=== PATIENT | female | born 1990 | race Caucasian/White ===

== ENCOUNTER 2017-07-20 14:41 | Inpatient (IN) | payer BC ==
[2017-07-21] MEDS ORDERED: ceFAZolin IN SWFI 2 GM/20 ML SYRINGE IVP ONE (10:17)
[2017-07-21] MEDS ORDERED: CITRIC ACID-SODIUM CITRATE 15 ML CUP PO ONE (10:17)
[2017-07-21 10:24] VITALS: BMI 28.8
[2017-07-21] MEDS ORDERED: LACTATED RINGERS 1,000 ML IV SCH (11:08)
[2017-07-21] MEDS ORDERED: OXYTOCIN 10 UNIT/ML 1 ML VIAL ONE (11:18)
[2017-07-21] MEDS ORDERED: ONDANSETRON 4 MG/2 ML VIAL ONE (11:18)
[2017-07-21] MEDS ORDERED: MORPHINE SULFATE (PF) 0.3 MG/0.3 ML SYR ONE (11:18)
[2017-07-21] MEDS ORDERED: KETOROLAC 30 MG/ML 1 ML VIAL ONE (11:18)
[2017-07-21] MEDS ORDERED: PHENYLEPHRINE-0.9% NACL SYG 1 MG/10 ML SYRINGE ONE (11:18)
[2017-07-21] MEDS ORDERED: NALBUPHINE 10 MG/ML AMPUL ONE (11:18)
--- NOTE | 2017-07-21 11:23 | P.HPOB ---
History of Present Illness H&P Date: 07/21/17 Chief Complaint: Here for repeat low transverse section This is a 27-year-old white female 2 para 1001 EDC 520 07/17/17 at 40 and one sevenths weeks' gestation. Patient had a previous low transverse section for arrest of descent in the second stage. Her plan was to await spontaneous labor and consider if this occurred before her stated due date. However, her cervix at this point is unfavorable, her due date was yesterday, and she has elected to proceed with repeat transverse section. All questions have been answered. She denies vaginal bleeding or fluid leakage. Past medical history is negative. Past surgical history low transverse section in July 2015 for arrest of descent. Current medications vitamins daily. ALLERGIES include adhesive tape. NO KNOWN DRUG ALLERGIES. Social history patient is , she has never been a smoker, she denies alcohol or drug use. Family history is essentially noncontributory, multiple sclerosis and pancreatic cancer as well as bile duct cancer are noted. history: Blood type is A+, rubella status immune. VDRL testing, hepatitis B surface antigen, HIV testing, gonorrhea and chlamydia cultures, group B strep cultures all negative. One-hour Glucola 79. On examination this is a pleasant young female, she is 5 foot 5 inches, 160 pounds, vital signs are stable and she is afebrile. The general physical exam is within normal limits. The chest is clear in all womack. Extremities reveal no edema. The fundal height is 40 cm. Infant is vertex to Jose's maneuvers. Cervix is 1 cm dilated, posterior, 50% effaced, firm, -2 station. heart rate is consistent with reactive NST. Impression: 40 and one sevenths weeks intrauterine , here for repeat low transverse section. Plan: Repeat low transverse section, patient has been offered and is declining option for tubal ligation. Risks benefits and alternatives of this procedure have been discussed with the patient in thorough detail. All questions answered. Review of Systems Constitutional: Reports as per HPI Past Medical History Past Medical History: No Reported History History of Any Multi-Drug Resistant Organisms: None Reported Past Surgical History: Section Past Anesthesia/Blood Transfusion Reactions: No Reported Reaction Past Psychological History: No Psychological Hx Reported Smoking Status: Never smoker Past Drug Use History: None Reported - Past Family History Mother History Unknown: Yes Family Medical History: Musculoskeletal Disorder Additional Family Medical History / Comment(s): MS Father History Unknown: Yes Family Medical History: Cancer Additional Family Medical History / Comment(s): liver cancer Medications and Allergies Home Medications Medication Instructions Recorded Confirmed Type Pnv,Calcium 72/Iron/Folic Acid 1 tab PO DAILY 07/10/15 07/21/17 History [ Plus Tablet] Allergies Allergy/AdvReac Type Severity Reaction Status Date / Time No Known Allergies Allergy Verified 07/21/17 10:16 Exam - Vital Signs Vital signs: Vital Signs Temp Pulse Resp BP Pulse Ox 07/21/17 10:18 97.0 F L 80 18 121/75 100 Intake and Output 07/20/17 07/21/17 07/21/17 22:59 06:59 14:59 Other: Weight 73.936 kg See dictation under HPI please Assessment and Plan Plan: For repeat low transverse section. Tubal ligation discussed and declined. Time with Patient: Less than 30
[2017-07-21] MEDS ORDERED: ONDANSETRON 4 MG/2 ML VIAL IVP PRN ×3 (11:47→21:55)
[2017-07-21] MEDS ORDERED: MORPHINE SULFATE 4 MG/ML SYRINGE IVP PRN (11:47)
[2017-07-21] MEDS ORDERED: NALOXONE 0.4 MG/ML 1 ML VIAL IV PRN ×2 (11:47→12:17)
[2017-07-21] MEDS ORDERED: diphenhydrAMINE 50 MG/ML 1 ML VIAL IVP PRN ×3 (11:47→12:17)
[2017-07-21] MEDS ORDERED: ACETAMINOPHEN TAB 325 MG TAB PO PRN (12:17)
[2017-07-21] MEDS ORDERED: METOCLOPRAMIDE 5 MG/ML 2 ML VIAL IVP PRN (12:17)
[2017-07-21] MEDS ORDERED: diphenhydrAMINE 50 MG CAP PO PRN (12:17)
[2017-07-21] MEDS ORDERED: diphenhydrAMINE 25 MG CAP PO PRN (12:17)
[2017-07-21] MEDS ORDERED: HYDROcodone/APAP 5-325MG 1 EACH TAB PO PRN (12:17)
[2017-07-21] MEDS ORDERED: ZOLPIDEM 5 MG TAB PO PRN (12:17)
--- NOTE | 2017-07-21 12:17 | P.OP ---
Date of Procedure: 07/21/17 Preoperative Diagnosis: 40 and one sevenths week intrauterine , previous section, here for repeat section. Postoperative Diagnosis: Liveborn female , left occiput transverse position, nuchal cord 1. Procedure(s) Performed: Repeat low transverse section Anesthesia: spinal Surgeon: Sandy Hankins Banking Services Clerk #1: Jose Antonio Bethea Estimated Blood Loss (ml): 400 IV fluids (ml): 800 Urine output (ml): 50 Pathology: other (Placenta) Condition: stable Disposition: PACU Operative Findings: Left occiput transverse position, nuchal cord 1, normal-appearing tubes and ovaries bilaterally. Description of Procedure: Patient is brought to the operating room where a spinal with Duramorph is placed. She is put in the dorsal supine position with left lateral uterine displacement. Givens catheter is placed to direct drainage. Antibiotics are given. The appropriate timeout is performed to assure proper patient and procedural identification. The abdomen is prepped and draped in usual sterile fashion. The analgesia is checked and noted to be adequate. A low transverse skin incision is made in this is carried down through the subcutaneous tissue. The fascia is isolated, scored and extended bilaterally with curved Jaeger scissors. Peritoneum is next identified and incised, there is no bowel or bladder involvement. Bladder retractor is placed over the bladder, and a bladder flap is created with Metzenbaum scissors. The bladder blade is then replaced over the bladder to avoid any bladder and/or ureteral injury. A repeat low transverse uterine incision is made. Artificial amniorrhexis reveals an abundant amount of clear non-malodorous fluid. 's head is delivered in the left occiput transverse position. There is a nuchal cord 1 was reduced. The oropharynx, nasopharynx, and external nares are all bulb suctioned. Patient is officially delivered of a liveborn female infant at 1141 hours. Umbilical cord is doubly clamped and ligated, she is handed to waiting nurses for evaluation where scores of 9 and 9 at one and 5 minutes respectively are given. Baby weighs 7 lbs. 10 oz. or 3470 g. The placenta is delivered spontaneously, it is inspected and noted to be intact with trivascular cord at 1142 hours. Meconium staining is noted on the placenta. The uterus is next externalized and swept clean with a sponge to avoid any retained products of conception. The edges of the incision are grasped with Salazar clamps. The uterus is closed in a two-step fashion, first layer running locking, second layer imbricated, both with 0 Vicryl suture. Bilateral tubes and ovaries are inspected and noted to be normal. The abdomen was suctioned with suction on guard and the uterus is gently placed back into the abdominal cavity. Bilateral gutters are inspected and cleaned. Peritoneum is allowed to close by secondary intention. Fascia is closed in a running stitch of 0 Vicryl suture with over ligation in the midline. Subcutaneous tissue is irrigated, inspected, noted to be clean and dry. It is reapproximated with 2-0 Vicryl in a running fashion. 4-0 undyed Monocryl issues for final skin closure. A light dressing is applied with paper tape secondary to known adhesive tape reaction. Givens catheter is noted to be draining clear urine. All sponge needle and instrument counts are correct at the end of the procedure. Patient is brought back to recovery room in very good condition with stable vital signs including a pulse of 70, blood pressure 110/48.
[2017-07-21 12:35] LABS: Basophils % (A) 0 %; Eosinophils % (A) 0 %; HCT 31.7 % (34.0-46.0); HGB 10.8 gm/dL (11.4-16.0); Lymphocytes # (A) 1.1 k/uL (1.0-4.8); Lymphocytes % (A) 12 %; MCH 29.5 pg (25.0-35.0); MCV 86.9 fL (80.0-100.0); Mean Platelet Volume 7.9; Monocytes # (A) 0.3 k/uL (0-1.0); Monocytes % (A) 3 %; Neutrophils # (A) 7.8 k/uL (1.3-7.7); Neutrophils % (A) 83 %; Platelet Count 158 k/uL (150-450); RBC 3.65 m/uL (3.80-5.40); RDW 14.8 % (11.5-15.5); WBC 9.3 k/uL (3.8-10.6)
[2017-07-21] MEDS: LACTATED RINGERS 1,000 ML IV SCH ×2 (19:37→21:06)
[2017-07-21] MEDS: SENNOSIDES-DOCUSATE SODIUM 1 EACH TAB PO SCH (21:06)
[2017-07-22] MEDS: LACTATED RINGERS 1,000 ML IV SCH ×3 (06:00→20:38)
--- NOTE | 2017-07-22 07:21 | P.PN ---
Progress Note - Text Progress Note Date: 07/22/17 Postoperative day 1 status post section under spinal anesthesia, and intrathecal morphine given for postoperative analgesia, patient doing well, there is no anesthesia related complications, Patient had no headache, vital signs stable , Assessment and plan= postop day 1 status post , doing well there is no anesthesia related complication.
[2017-07-22 07:55] LABS: Basophils % (A) 0 %; Eosinophils % (A) 0 %; HCT 30.2 % (34.0-46.0); HGB 10.2 gm/dL (11.4-16.0); Lymphocytes % (A) 12 %; MCH 29.1 pg (25.0-35.0); MCV 85.7 fL (80.0-100.0); Mean Platelet Volume 8.1; Monocytes # (A) 0.4 k/uL (0-1.0); Monocytes % (A) 4 %; Neutrophils % (A) 83 %; Platelet Count 167 k/uL (150-450); RBC 3.52 m/uL (3.80-5.40); WBC 8.4 k/uL (3.8-10.6)
--- NOTE | 2017-07-22 08:02 | P.PN ---
Subjective Progress Note Date: 07/22/17 Slept well. Pain well controlled. Moderate lochia rubra. Positive flatus. Objective - Vital Signs Vital signs: Vital Signs Temp 98.1 F 07/22/17 04:00 Pulse 68 07/22/17 04:00 Resp 16 07/22/17 06:00 BP 117/53 07/22/17 04:00 Pulse Ox 98 07/22/17 06:00 Intake & Output 07/21/17 07/22/17 07/22/17 18:59 06:59 18:59 Intake Total 100 350 Output Total 400 1500 Balance -300 -1150 Weight 73.936 kg Intake: Intake, IV Titration 350 Amount Lactated Ringers 1,000 ml 350 @ 125 mls/hr IV .Q8H KAHLIL Rx#:[id number] Oral 100 Output: Urine 1500 Uretheral (Givens) 600 Estimated Blood Loss 400 Other: Voiding Method Indwelling Catheter # Voids 1 - Constitutional General appearance: Present: average body habitus, cooperative - EENT Eyes: Present: PERRLA ENT: Present: hearing grossly normal - Neck Neck: Present: normal ROM - Respiratory Respiratory: bilateral: CTA - Cardiovascular Rhythm: regular - Gastrointestinal General gastrointestinal: Present: normal bowel sounds - Genitourinary Genitourinary Comment(s): Incision clean and dry, well approximated. Fundus firm, midline, symmetric, 18 week size. - Integumentary Integumentary: Present: normal - Neurologic Neurologic: Present: CNII-XII intact - Musculoskeletal Musculoskeletal: Present: strength equal bilaterally - Psychiatric Psychiatric: Present: A&O x's 3, appropriate affect, intact judgment & insight - Labs CBC & Chem 7: 07/21/17 12:18 Labs: Abnormal Lab Results - Last 24 Hours (Table) 07/21/17 Range/Units 12:18 RBC 3.65 L (3.80-5.40) m/uL Hgb 10.8 L (11.4-16.0) gm/dL Hct 31.7 L (34.0-46.0) % Neutrophils # 7.8 H (1.3-7.7) k/uL Assessment and Plan Assessment: Doing well, postoperative day #1. Plan: Continue postoperative care. Likely discharge home tomorrow. Time with Patient: Less than 30
[2017-07-22] MEDS: SENNOSIDES-DOCUSATE SODIUM 1 EACH TAB PO SCH ×2 (08:34→19:19)
[2017-07-22] MEDS: IBUPROFEN 600 MG TAB PO PRN ×2 (12:03→19:20)
[2017-07-23] MEDS: IBUPROFEN 600 MG TAB PO PRN ×2 (00:42→08:15)
[2017-07-23 01:05] VITALS: RESP 16
--- NOTE | 2017-07-23 07:48 | P.DS ---
Providers Date of admission: 07/21/17 10:02 Expected date of discharge: 07/23/17 Attending physician: Sandy Hankins Primary care physician: Stated None Hospital Course: This is a 27 rolled white female 2 para 1001 EDC 07/20/2017 at 40 and one sevenths weeks' gestation. Patient had a previous section for arrest of descent in the second stage of labor. Since active labor did not spontaneously occur, she has elected to proceed with repeat low transverse section. She declined option for tubal ligation. Group B strep cultures are negative, blood type A positive, please see dictated history and physical for details. Patient underwent a repeat low transverse section with an estimated blood loss of 400 mL's. She gave to a liveborn female infant with scores of 9 and 9 at one and 5 minutes respectively. Infant weighed 7 lbs. 10 oz. or 3470 g. The procedure was unremarkable, please see dictated operative note for details. This morning the patient is doing well. She is voiding, ambulating and passing flatus without difficulty. Vital signs are stable and she has remained afebrile. Fundus is firm and in the midline, symmetric and 18 week size. Incision is clean and dry, intact, Steri-Strips have not been applied to the wounds secondary to a ALLERGIC reaction sustained with prior section. Pain is well controlled. She is being discharged home today in very good condition. She is reminded to follow-up with me in the office in 2 weeks. I have reminded her no intercourse, tampons or douching. She will use [id number] ibuprofen products, 200 mg pills, 3 every 6 hours as needed for pain. She will call with any fevers shakes or chills, foul smelling or copious lochia, with the passage of large blood clots, with any pain not alleviated by ibuprofen, or indeed with any concerns. will follow-up with nitroglycerin separator operator as directed. Patient Condition at Discharge: Good Plan - Discharge Summary New Discharge Prescriptions: No Action Pnv,Calcium 72/Iron/Folic Acid [ Plus Tablet] 1 tab PO DAILY Discharge Medication List Pnv,Calcium 72/Iron/Folic Acid [ Plus Tablet] 1 tab PO DAILY 07/10/15 [ History] Follow up Appointment(s)/Referral(s): Sandy Hankins MD [STAFF PHYSICIAN] - 2 Weeks Patient Instructions/Handouts: (DC) Discharge Disposition: HOME SELF-CARE
[2017-07-23] MEDS: SENNOSIDES-DOCUSATE SODIUM 1 EACH TAB PO SCH (08:15)
[2017-07-23 08:19] VITALS: BP 110/52; PULSE 73; TEMP 98.6
== END 2017-07-23 11:36 | disposition home or self-care (01) | DRG 766 ==
LOC: 4FBP 07-21 10:02
PROVIDERS: ADMIT Obstetrics & Gynecology; ATTEND Obstetrics & Gynecology
PROC: 10D00Z1 Extraction of Products of Conception, Low, Open Approach (ICD-10-PCS; principal; 2017-07-21 06:00)
DX: O34.211 Maternal care for low transverse scar from previous cesarean delivery (principal); Z37.0 Single live birth; O48.0 Post-term pregnancy; Z3A.40 40 weeks gestation of pregnancy; O69.81X0 Labor and delivery complicated by cord around neck, without compression, not applicable or unspecified; Z80.0 Family history of malignant neoplasm of digestive organs; Z82.0 Family history of epilepsy and other diseases of the nervous system
CPT/HCPCS: 85025; 86850; 86900; 86901; 88307

== ENCOUNTER 2020-04-30 06:20 | Inpatient (IN) | payer BC ==
[2020-04-23 15:43] VITALS: BMI 29.8
[2020-04-30] MEDS ORDERED: CITRIC ACID-SODIUM CITRATE 15 ML CUP PO ONE (06:36)
[2020-04-30] MEDS: LACTATED RINGERS 1,000 ML IV SCH ×3 (06:59→19:34)
[2020-04-30 07:01] LABS: Basophils % (A) 0 %; Eosinophils # (A) 0.2 k/uL (0-0.7); Eosinophils % (A) 1 %; HCT 34.5 % (34.0-46.0); HGB 11.6 gm/dL (11.4-16.0); Lymphocytes # (A) 1.9 k/uL (1.0-4.8); Lymphocytes % (A) 17 %; MCH 28.7 pg (25.0-35.0); MCHC 33.5 g/dL (31.0-37.0); MCV 85.6 fL (80.0-100.0); Mean Platelet Volume 7.9; Monocytes # (A) 0.5 k/uL (0-1.0); Monocytes % (A) 5 %; Neutrophils # (A) 8.4 k/uL (1.3-7.7); Neutrophils % (A) 76 %; Platelet Count 239 k/uL (150-450); RBC 4.03 m/uL (3.80-5.40); RDW 14.5 % (11.5-15.5); WBC 11.1 k/uL (3.8-10.6)
[2020-04-30] MEDS ORDERED: OXYTOCIN 10 UNIT/ML 1 ML VIAL ONE (07:52)
[2020-04-30] MEDS ORDERED: PHENYLEPHRINE-0.9% NACL SYG 1,000 MCG/10 ML SYRINGE ONE (07:52)
[2020-04-30] MEDS ORDERED: KETOROLAC 15 MG/ML 1 ML VIAL ONE (07:52)
[2020-04-30] MEDS ORDERED: MORPHINE SULFATE (PF) 0.3 MG/0.3 ML SYR ONE (07:52)
[2020-04-30] MEDS ORDERED: ONDANSETRON 4 MG/2 ML VIAL ONE (07:52)
--- NOTE | 2020-04-30 07:56 | P.HPOB ---
History of Present Illness H&P Date: 04/30/20 Chief Complaint: Here for repeat section and tubal ligation This is a 30-year-old female 3 para 2002 EDC 05/04/2020 at 39-4/7 weeks' gestation who presents for repeat low transverse section and tubal ligation. Fetus is been active throughout the . She denies vaginal bleeding or fluid leakage. Past medical history is unremarkable. Past surgical history section 2015. ALLERGIES adhesive tape to which reports a rash. Family history significant for pancreatic cancer, MS, bile duct cancer. Social history patient is , she is a nonsmoker, she denies alcohol or drug use. history is significant for blood type A+, rubella status immune. VDRL testing, hepatitis B surface antigen, HIV testing, urine culture, gonorrhea and chlamydia cultures all negative. Rupee strep cultures positive. One-hour Glucola 93. On exam patient is 5 foot 4 inches, 173 pounds, vital signs are stable and she is afebrile, admitting blood pressure 125/62. The general physical exam is within normal limits. The extremities reveal no edema. The infant is vertex to Jose's maneuvers. heart rate is consistent with reactive NST. Impression: 39-4/7 weeks intrauterine , 2 previous sections, undesired fertility. Plan: Antibiotic prophylaxis. We will proceed with repeat low transverse section and tubal ligation. All risks benefits and alternatives are reviewed with the patient in detail. All questions answered. Review of Systems Constitutional: Reports as per HPI Past Medical History Past Medical History: No Reported History History of Any Multi-Drug Resistant Organisms: None Reported Past Surgical History: Section Additional Past Surgical History / Comment(s): c sect x2 Past Anesthesia/Blood Transfusion Reactions: No Reported Reaction Additional Past Anesthesia/Blood Transfusion Reaction / Comment(s): no hx blood transfusion Past Psychological History: No Psychological Hx Reported Smoking Status: Never smoker Past Alcohol Use History: None Reported Past Drug Use History: None Reported - Past Family History Mother History Unknown: Yes Family Medical History: Musculoskeletal Disorder Additional Family Medical History / Comment(s): MS Father History Unknown: Yes Family Medical History: Cancer Additional Family Medical History / Comment(s): liver cancer Medications and Allergies Home Medications Medication Instructions Recorded Confirmed Type Pnv,Calcium 72/Iron/Folic Acid 1 tab PO DAILY 07/10/15 04/30/20 History [ Plus Tablet] Calcium Carbonate [Tums] 500 mg PO QID PRN 04/30/20 04/30/20 History Allergies Allergy/AdvReac Type Severity Reaction Status Date / Time adhesive tape Allergy irritates Verified 04/23/20 15:34 skin Exam Vital Signs Temp Pulse Resp BP 04/30/20 06:48 97.3 F L 87 18 125/62 Intake and Output 04/29/20 04/30/20 04/30/20 22:59 06:59 14:59 Other: Weight 80.739 kg She dictation under HPI please Results Result Diagrams: 04/30/20 06:44 Abnormal Lab Results - Last 24 Hours (Table) 04/30/20 Range/Units 06:44 WBC 11.1 H (3.8-10.6) k/uL Neutrophils # 8.4 H (1.3-7.7) k/uL Assessment and Plan Assessment: 39-4/7 weeks intrauterine , 2 previous sections, undesired fertility. Plan: For repeat low transverse section and tubal ligation utilizing Filshie clips. All risks benefits and alternatives reviewed in detail. Time with Patient: Less than 30
[2020-04-30] MEDS ORDERED: ONDANSETRON 4 MG/2 ML VIAL IVP PRN (08:46)
[2020-04-30] MEDS ORDERED: SIMETHICONE 80 MG CHEWABLE PO PRN (08:46)
[2020-04-30] MEDS ORDERED: diphenhydrAMINE 50 MG/ML 1 ML VIAL IVP PRN ×2 (08:46)
[2020-04-30] MEDS ORDERED: METOCLOPRAMIDE 5 MG/ML 2 ML VIAL IVP PRN (08:46)
[2020-04-30] MEDS ORDERED: HYDROcodone/APAP 5-325MG 1 EACH TAB PO PRN (08:46)
[2020-04-30] MEDS ORDERED: diphenhydrAMINE 25 MG CAP PO PRN (08:46)
[2020-04-30] MEDS ORDERED: ACETAMINOPHEN TAB 325 MG TAB PO PRN (08:46)
[2020-04-30] MEDS ORDERED: KETOROLAC 15 MG/ML 1 ML VIAL IVP PRN (08:46)
[2020-04-30] MEDS ORDERED: NALOXONE 0.4 MG/ML 1 ML VIAL IV PRN ×2 (08:46→09:15)
[2020-04-30] MEDS ORDERED: diphenhydrAMINE 50 MG CAP PO PRN (08:46)
[2020-04-30] MEDS ORDERED: ZOLPIDEM 5 MG TAB PO PRN (08:46)
--- NOTE | 2020-04-30 08:46 | P.OP ---
Date of Procedure: 04/30/20 Preoperative Diagnosis: 39-4/7 weeks intrauterine , 2 previous sections, undesired fertility. Postoperative Diagnosis: Same, liveborn female . Procedure(s) Performed: Repeat low transverse section, tubal ligation with Filshie clips Anesthesia: spinal Surgeon: Sandy Hankins Presetter Operator #1: Jose Antonio Bethea Estimated Blood Loss (ml): 200 IV fluids (ml): 1,000 Urine output (ml): 100 Pathology: none sent Condition: stable Disposition: PACU Operative Findings: Liveborn female infant, scores 8 and 9, 7 lbs. 15 oz., 3610 g, normal- appearing tubes and ovaries. Description of Procedure: Patient is brought to the operating suite where a spinal anesthesia is administered without difficulty. She's placed in the dorsal supine position with left lateral uterine displacement. Givens catheter is placed. Abdomen is prepped and draped in usual sterile fashion. Antibiotics are given. The appropriate timeout is performed to assure proper patient and procedural identification. Analgesia is checked and noted to be adequate. A repeat low transverse skin incision is made in this is carried down through the subcutaneous tissue to the fascia. Fascia is isolated, scored, extended bilaterally with curved Jaeger scissors. The peritoneum was then identified and incised, no bowel or bladder involvement. Metzenbaum scissors are used to gently take the bladder flap down from the lower uterine segment. A low transverse uterine incision is made in this is extended with blunt dissection. Infant's head is delivered occiput anterior. There is no nuchal cord noted. The oropharynx, nasopharynx, and external nares were all bulb suctioned. Patient is officially delivered of a liveborn female infant at 0815 hours. Umbilical cord is doubly clamped and ligated, she is handed to waiting nurses for evaluation where scores of 8 and 9 at one and 5 minutes respectively are given. weighs 3610 g or 7 lbs. 15 oz. The placentas delivered m anually, it is inspected and noted to be intact with trivascular cord at 0816 hours. At this time the uterus is massaged and externalized. It is swept clean with a sterile sponge to avoid any retained products of conception. The edges are grasped with Salazar clamps and the uterus is closed in a single full- thickness stitch of 0 Vicryl in a running locking fashion. Excellent reapproximation is noted. The lower uterine segment is quite thin. Filshie clips are now applied to the isthmic portion of both tubes, with care to traverse the entire diameter's of the tube into the mesal salpinx. Fimbriated ends are identified bilaterally. Ovaries appear normal. Uterus is once again inspected and noted to be clean and dry. The abdomen is suctioned with suction on guard posterior to the uterus and the uterus is gently placed back into the abdominal cavity. Bilateral gutters are inspected and cleaned. Peritoneum is allowed to close by secondary intention. Fascia is closed in a running locking stitch of 0 Vicryl with over ligation in the midline. Subcutaneous tissue is clean and dry. It is reapproximated with 3-0 Vicryl in a running fashion. 4-0 undyed Monocryl is used for final subcuticular skin closure. Steri-Strips and Mastisol are not applied for the patient's history of ALLERGIC response from prior procedure. Telfa and dressing is placed with paper tape. Uterus is massaged, firm and below the umbilicus. Givens is noted to be draining clear urine. All sponge needle and instrument counts are correct. Patient is brought back to the recovery room in stable condition with a blood pressure 104/62, pulse 80, respirations 16. infant is doing well. Total urine output 100 mL, clear yellow urine in the tube.
[2020-04-30] MEDS ORDERED: HYDROmorphone 0.5 MG/0.5 ML SYRINGE IVP PRN (09:15)
[2020-04-30] MEDS: SENNOSIDES-DOCUSATE SODIUM 1 EACH TAB PO SCH (19:17)
--- NOTE | 2020-05-01 06:31 | P.PN ---
Progress Note - Text Progress Note Date: 05/01/20 Postoperative day 1 status post section under spinal anesthesia, and intrathecal morphine given for postoperative analgesia, patient doing well, there is no anesthesia related complications Patient had no headache, vital signs stable Assessment and plan = postop day 1 status post , doing well there is no anesthesia related complication
[2020-05-01 06:45] LABS: Basophils % (A) 0 %; Eosinophils # (A) 0.1 k/uL (0-0.7); Eosinophils % (A) 1 %; HCT 32.4 % (34.0-46.0); Lymphocytes # (A) 1.4 k/uL (1.0-4.8); Lymphocytes % (A) 14 %; MCH 29.4 pg (25.0-35.0); MCV 86.6 fL (80.0-100.0); Mean Platelet Volume 7.8; Monocytes # (A) 0.6 k/uL (0-1.0); Monocytes % (A) 5 %; Neutrophils # (A) 8.4 k/uL (1.3-7.7); Neutrophils % (A) 79 %; Platelet Count 204 k/uL (150-450); RBC 3.74 m/uL (3.80-5.40); RDW 14.4 % (11.5-15.5); WBC 10.5 k/uL (3.8-10.6)
--- NOTE | 2020-05-01 07:57 | P.PN ---
Subjective Progress Note Date: 05/01/20 Principal diagnosis: Postoperative day #1 Slept well. Positive flatus. Minimal pain. No complaints. Objective - Vital Signs Vital signs: Vital Signs Temp 98.2 F 05/01/20 04:00 Pulse 74 05/01/20 04:00 Resp 14 05/01/20 05:59 BP 91/52 05/01/20 04:00 Pulse Ox 98 05/01/20 04:00 Intake & Output 04/30/20 05/01/20 05/01/20 18:59 06:59 18:59 Output Total 2200 550 Balance -2200 -550 Output: Urine 2100 550 Uretheral (Givens) 700 Emesis 100 - Constitutional General appearance: Present: average body habitus, cooperative - EENT Eyes: Present: PERRLA ENT: Present: hearing grossly normal - Respiratory Respiratory: bilateral: CTA - Cardiovascular Rhythm: regular - Gastrointestinal General gastrointestinal: Present: normal bowel sounds - Genitourinary Genitourinary Comment(s): Incision clean and dry, intact, no redness or ecchymosis. - Integumentary Integumentary: Present: normal - Neurologic Neurologic: Present: CNII-XII intact - Musculoskeletal Musculoskeletal: Present: gait normal, strength equal bilaterally - Psychiatric Psychiatric: Present: A&O x's 3, appropriate affect, intact judgment & insight - Labs CBC & Chem 7: 05/01/20 06:05 Labs: Abnormal Lab Results - Last 24 Hours (Table) 05/01/20 Range/Units 06:05 RBC 3.74 L (3.80-5.40) m/uL Hgb 11.0 L (11.4-16.0) gm/dL Hct 32.4 L (34.0-46.0) % Neutrophils # 8.4 H (1.3-7.7) k/uL Assessment and Plan Assessment: Doing very well postoperative day #1 Plan: Continue postoperative care. Advanced diet and activity. Likely discharge home tomorrow. Time with Patient: Less than 30
[2020-05-01] MEDS: IBUPROFEN 600 MG TAB PO PRN ×3 (08:32→23:51)
[2020-05-01] MEDS: SENNOSIDES-DOCUSATE SODIUM 1 EACH TAB PO SCH ×2 (08:32→19:29)
--- NOTE | 2020-05-02 07:33 | P.DS ---
Providers Date of admission: 04/30/20 06:20 Expected date of discharge: 05/02/20 Attending physician: Sandy Hankins Primary care physician: Stated None Hospital Course: This is a 30-year-old white female 3 para 2001 EDC 05/04/2020 at 39-4/7 weeks' gestation. Patient presented for repeat low transverse section and tubal ligation. She has an ALLERGY to adhesive tape. Blood type is A+, rubella status immune, group B strep cultures positive. Please see dictated history and physical for details. Antibiotic prophylaxis was given. Patient underwent a repeat low transverse section giving to a liveborn female with scores of 8 and 9 at one and 5 minutes respectively. Infant weighed 7 lbs. 15 oz. or 3610 g. Tubal ligation was also performed utilizing Filshie clips. Estimate a blood loss 150 mL's. Please see dictated operative note for details. This morning the patient is doing well. The incision is clean and dry, well approximated with subcuticular stitch. Breasts are not engorged. Breast- feeding is going well. Patient's extremities are negative for edema. Chest is clear. She is judged to be in very good condition for discharge home. infant is also doing well for discharge. Patient will follow-up with me in the office in 2 weeks. I have reminded her no intercourse, tampons or douching. She will use [id number] Advil or Aleve, or Motrin as needed for pain. She will call with any fevers shakes or chills, foul smelling or copious lochia, with the passage of large blood clots, with any pain not alleviated by [id number] products, or indeed with any concerns. I have given her prescription for a double electric breast pump to use as needed. Continue vitamin daily. Assessment: Doing well day number two Patient Condition at Discharge: Good Plan - Discharge Summary New Discharge Prescriptions: No Action Pnv,Calcium 72/Iron/Folic Acid [ Plus Tablet] 1 tab PO DAILY Calcium Carbonate [Tums] 500 mg PO QID PRN PRN Reason: Heartburn Discharge Medication List Pnv,Calcium 72/Iron/Folic Acid [ Plus Tablet] 1 tab PO DAILY 07/10/15 [History] Calcium Carbonate [Tums] 500 mg PO QID PRN 04/30/20 [History] Follow up Appointment(s)/Referral(s): Sandy Hankins MD [STAFF PHYSICIAN] - 2 Weeks Discharge Disposition: HOME SELF-CARE
[2020-05-02] MEDS: SENNOSIDES-DOCUSATE SODIUM 1 EACH TAB PO SCH (08:07)
[2020-05-02] MEDS: IBUPROFEN 600 MG TAB PO PRN (08:07)
[2020-05-02 09:19] VITALS: BP 107/69; PULSE 88; RESP 18; TEMP 98.4
== END 2020-05-02 09:34 | disposition home or self-care (01) | DRG 785 ==
LOC: 4FBP 06:20
PROVIDERS: ADMIT Obstetrics & Gynecology; ATTEND Obstetrics & Gynecology
PROC: 0UL70CZ Occlusion of Bilateral Fallopian Tubes with Extraluminal Device, Open Approach (ICD-10-PCS; 2020-04-30)
PROC: 10D00Z1 Extraction of Products of Conception, Low, Open Approach (ICD-10-PCS; principal; 2020-04-30 07:55)
DX: O34.211 Maternal care for low transverse scar from previous cesarean delivery (principal); Z30.2 Encounter for sterilization; Z3A.39 39 weeks gestation of pregnancy; Z37.0 Single live birth; Z80.0 Family history of malignant neoplasm of digestive organs; Z91.048 Other nonmedicinal substance allergy status; Z79.899 Other long term (current) drug therapy
CPT/HCPCS: 85025; 86850; 86870; 86880; 86900; 86901; 86902